=== PATIENT | female | born 1990 | race Caucasian/White ===

== ENCOUNTER 2018-09-25 21:46 | Emergency (ER) | END 2018-09-25 21:50 | disposition left against medical advice (07) | LOC: ER 21:46 | DX: Z53.21 Procedure and treatment not carried out due to patient leaving prior to being seen by health care provider (principal) ==

== ENCOUNTER → 2019-01-21 | Outpatient (CLI) | payer BC ==
--- NOTE | 2019-01-22 08:36 | RADIOLOGY REPORT (SQ) ---
EXAM DESCRIPTION: CT SINUSES FOR ENT COMPLETED DATE/TIME: 01/21/2019 8:06 am REASON FOR STUDY: MIGRAINE W/O STATUS MIGRAINOSUS NOT INTRACTABLE, UNSPEC MIGRAINE TYPE (G43. G43.90 9 MIGRAINE, UNSP, NOT INTRACTABLE, WITHOUT STATUS MIGR COMPARISON: None. TECHNIQUE: Noncontrast scanning through the paranasal sinuses using bone algorithm. Reconstructed MPR images reviewed. All images stored on PACS. All CT scanners at this facility use dose modulation, iterative reconstruction, and/or weight based d osing when appropriate to reduce radiation dose to as low as reasonably achievable (ALARA). [facility]: Dose Right [facility]: CareDose [facility]: Dose Right [facility]: Teradose 4D [facility]: [employer] RADIATION DOSE: 46mGy. LIMITATIONS: None. FINDINGS: Right sinuses and drainage pathways: Post-surgical changes: None. Frontal sinus: Normal. Frontoethmoidal Recess: Normal. Anterior Ethmoid Sinuses: Normal. Posterior Ethmoid Sinuses: Normal. Sphenoid Sinus: Normal. Pneumatized pterygoid recess. Sphenoethmoidal Recess: Normal. Maxillary Sinus: Normal. Ostiomeatal Complex: Normal. Left Sinuses and Drainage Pathways: Post-Surgical Changes: None. Frontal Sinus: Normal. Frontoethmoidal Recess: Normal. Anterior Ethmoid Sinuses: Normal. Posterior Ethmoid Sinuses: Normal. Sphenoid Sinus: Normal. Pneumatized pterygoid recess. Sphenoethmoidal Recess: Normal. Maxillary Sinus: Normal. Ostiomeatal Complex: Normal. Right Olfactory Fossa: No polyps. Left Olfactory Fossa: No polyps. Middle Turbinate Berta Bullosa: No. Paradoxical Middle Turbinate: No. Atelectatic Uncinated Process: No. Frontal Vaughn Cell Type I: No. Frontal Vaughn Cell Type II: No. Interfrontal Sinus Septal Cell: Coronal image 70. Suptra-Orbital Ethmoid: None. Frontal Bullar Cell: None. Suprabullar Bullar Cell: None. Sphenoethmoidal ([place]) Cell: None. Pneumatization of the Anterior Clinoid Processes: Bilaterally Hypoplastic Maxillary Sinus: None. Osteoneogenesis: None. Bone Dehiscence:None. Nasal Cavity: Normal. Nasal Septum: Midline Anatomic Variants: Right Vidian Canal: Normal. Left Vidian Canal: Normal. IMPRESSION: NO EVIDENCE OF ACUTE OR CHRONIC SINUSITIS. TECHNICAL DOCUMENTATION: JOB ID: [id number] Quality ID # [id number]: Final reports with documentation of one or more dose reduction techniques (e.g., Au tomated exposure control, adjustment of the mA and/or kV according to patient size, use of iterative reconstruction technique) 2010 [email or web address]- All Rights Reserved Reading location - IP/workstation name: [email or web address]
== END ==
LOC: RAD 07:48
PROVIDERS: ATTEND Otolaryngology
DX: G43.909 Migraine, unspecified, not intractable, without status migrainosus (principal)
CPT/HCPCS: 70486

== ENCOUNTER → 2019-03-01 | Outpatient (CLI) | payer BC | LOC: OD 08:04 | PROVIDERS: ATTEND Otolaryngology | DX: J30.9 Allergic rhinitis, unspecified (principal) | CPT/HCPCS: 36415; 82785; 86003 ==

== ENCOUNTER 2019-03-24 09:44 | Day surgery (SDC) | payer BC ==
[~2019-03-24 09:44] MED LIST: CEFAZOLIN 2 GM/D5W RTU 2 GM/50 ML RTUPB IV PRN; DEXAMETHASONE SOD PHOS INJ 10 MG/1 ML VIAL ONE; DEXMEDETOMIDINE INJ 80 MCG/20 ML VIAL IV ONE; FAMOTIDINE INJ/PF 20 MG/2 ML SDV IV ONE; FENTANYL CITRATE INJ/PF 100 MCG/2 ML AMPUL ONE; FENTANYL CITRATE INJ/PF 250 MCG/5 ML AMPULE ONE; GLYCOPYRROLATE INJ 0.4 MG/2 ML VIAL ONE; LIDOCAINE 2% INJ-PF (100 MG/5 ML) SYRINGE ONE; MIDAZOLAM 2 MG/2 ML INJ ONE; ONDANSETRON HCL INJ/PF 4 MG/2 ML SDV ONE; PROPOFOL INJ 200 MG/20 ML VIAL IV ONE; SUCCINYLCHOLINE CHLORIDE INJ 200 MG/10 ML VIAL ONE
[2019-03-24] MEDS ORDERED: OXYMETAZOLINE HCL 0.05% NASAL SPRAY 15 ML BOTTLE ONE (10:13)
[2019-03-24] MEDS ORDERED: MINERAL OIL (STERILE) 10 ML VIAL ONE (10:13)
[2019-03-24] MEDS ORDERED: BACITRACIN ZINC OINTMENT 15 GM ONE (10:13)
[2019-03-24] MEDS ORDERED: BUPIVACAINE HCL 0.5%/EPI 1:200000 INJ 1.8 ML CARTRIDGE ONE (10:13)
[2019-03-24] MEDS ORDERED: BUPIVACAINE HCL 0.5%-EPI 1:200000 INJ/PF 30 ML VIAL ONE (11:11)
[2019-03-24] MEDS ORDERED: OXYCODONE-ACETAMINOPHEN 5-325 MG TABLET ONE (14:23)
--- NOTE | 2019-03-27 10:31 | Operative Report ---
Operative Report-[facility] Operative Report: DATE OF OPERATION: March 24, 2019 PREOPERATIVE DIAGNOSES: 1. Acute recurrent sinusitis 2. Chronic rhinosinusitis 3. Chronic eustachian tube dysfunction 4. Chronic nasal congestion 5. Nasal Deformities, Acquired 6. Chronic Nasal Dyspnea 7. Nasal septal deviation, Acquired 8. Bilateral inferior turbinate hypertrophy POSTOPERATIVE DIAGNOSES: 1. Acute recurrent sinusitis 2. Chronic rhinosinusitis 3. Chronic eustachian tube dysfunction 4. Chronic nasal congestion 5. Nasal Deformities, Acquired 6. Chronic Nasal Dyspnea 7. Nasal septal deviation, Acquired 8. Bilateral inferior turbinate hypertrophy PROCEDURES: 1. Functional endoscopic sinus surgery via bilateral transnasal rigid surgical endoscopy as follows: 2. Bilateral frontal sinus balloon sinus plasty 3. Bilateral maxillary sinus balloon sinus plasty 4. Bilateral sphenoid sinus balloon sinus plasty 5. Bilateral eustachian tube balloon pl[place] [address] and is to be coded using the following CPT codes: 40326 therapeutic CPT code for bilateral transnasal rigid surgical endoscopy, and 31917 therapeutic CPT code for pharynx surgery (with WR VU of 8.27 per side) 2. Bilateral intramural inferior turbinate reductions using submucus resection techniques SURGEON: Dr. Kenyon Sampson Anesthesia Staff: NATALIE Barney ANESTHESIA: General endotracheal tube anesthesia/GETA DRAINS: None SPONGE COUNT: Verified NEEDLE COUNT: Verified SPECIMEN/MATERIALS FORWARD TO THE LAB: None ESTIMATED BLOOD LOSS: 20 mL TOTAL IV FLUIDS: 1100 COMPLICATIONS: None FINDINGS: 1. Nasal septal deviation, bilateral inferior turbinate hypertrophy, and mild middle turbinate hypertrophy. 2. Nasopharynx/Clarice notable for hypertrophy, and flattening/compression. 3. There were no sinonasal polyps noted. INDICATIONS: This is a 28-year-old white female who was seen and evaluated in the [facility] office. The patient was referred for and they complained of a history of chronic nasal dyspnea over the years. The patient has desired to undergo nasal surgery to improve functional nasal airflow and overall quality of life. The procedure, and all of the risks and complications were all discussed in detail with the patient. They voiced an understanding, agreed to proceed, and consent was obtained. DESCRIPTION OF OPERATIVE PROCEDURE: The patient was taken to the main operating room and placed on the operating room table in the supine position. Appropriate monitors were placed. Using mask and IV access general anesthesia was induced. The patient was then transorally intubated without difficulty. The table was next positioned for nasal surgery. The patient underwent a nasal examination and local anesthetic with epinephrine was administered to establish a nasal block. The patient next had two Afrin soaked neuropatties placed into each nasal passage. The patient was then prepped and draped in the usual fashion for nasal surgery. The neuropatties were removed and the patient underwent a hemitransfixion incision. There was elevation of the mucoperichondrial and mucoperiosteal flaps without difficulty. The bony cartilaginous junction was identified and divided and the most deviated portions of the bony and cartilaginous septum were removed without difficulty. There was a greater then 1.5 X 1.5 cm cartilaginous L-Strut preserved. Attention was now turned to performing bilateral inferior turbinate reductions. The turbinate bipolar wand was used to make 2 - 3 intramural passes in each inferior turbinate. At this point the turbinate microdebrider system at a setting of 1500 RPM was used to perform bilateral inferior turbinate submucous resections. This was followed by use of the Woodworth elevator to outfracture each inferior turbinate. [Excessive/redundant mucosa at the anterior portion of the inferior turbinates was next trimmed with margins reapproximated with chromic suture.] At this point the nose was thoroughly suctioned. Once complete the septum was repositioned in the midline. Cartilage which had been excised during the case was placed back between the mucosal flaps. At this point the mucosal flaps were reapproximated and the hemitransfixion incision was closed using Chromic suture. [Chromic suture was also used to perform a septal mattress whipstitch.] This was followed by placement of intranasal supporting material in each nasal passage that was secured at the caudal aspect with 4-0 Prolene suture. The nose was then cleaned and dried. Next, the patient was returned to the anesthesia staff and was allowed to emerge from general anesthesia. The patient was extubated in the main operating room and was then transported to the postanesthesia recovery unit in stable condition. There were no complications. .
== END 2019-03-24 15:09 | disposition home or self-care (01) ==
LOC: SC 09:44
PROVIDERS: ATTEND Otolaryngology
DX: J32.9 Chronic sinusitis, unspecified (principal); J34.9 Unspecified disorder of nose and nasal sinuses; Z79.899 Other long term (current) drug therapy; J34.2 Deviated nasal septum; J34.3 Hypertrophy of nasal turbinates; R06.09 Other forms of dyspnea; J30.9 Allergic rhinitis, unspecified; M26.609 Unspecified temporomandibular joint disorder, unspecified side; R09.82 Postnasal drip; G43.909 Migraine, unspecified, not intractable, without status migrainosus; M79.18 Myalgia, other site; R09.81 Nasal congestion; J03.91 Acute recurrent tonsillitis, unspecified; J35.01 Chronic tonsillitis; H69.83 Other specified disorders of Eustachian tube, bilateral
CPT/HCPCS: 00160; 42950; 30802; 31295; 31298; J2250; J3490 ×5; J3010; J2001; J0330; J2405; J2704; S0028; J1100; J0690; 160